=== PATIENT | male | born 1985 | race African-American/Black ===

== ENCOUNTER 2016-04-04 12:42 | Emergency (ER) | payer OTHER ==
--- NOTE | 2016-04-04 12:55 | ER Document Report ---
ED Medical Screen (RME) - General Stated Complaint: PENILE DISCHARGE Notes: penile discharge TRAVEL OUTSIDE OF THE [place] IN LAST 30 DAYS: No - Related Data Allergies/Adverse Reactions: No Known Allergies Allergy (Verified 02/10/16 10:58) Past Medical History Psychiatric Medical History: Reports: Hx Depression - Immunizations Immunizations up to date: Yes Hx Diphtheria, Pertussis, Tetanus Vaccination: Yes - 2015 Physical Exam - Vital signs Vitals: Temp Pulse Resp BP Pulse Ox 98.6 F 70 16 123/69 98 04/04/16 12:52 04/04/16 12:52 04/04/16 12:52 04/04/16 12:52 04/04/16 12:52 Course - Vital Signs Vital signs: Temp Pulse Resp BP Pulse Ox 98.6 F 70 16 123/69 98 04/04/16 12:52 04/04/16 12:52 04/04/16 12:52 04/04/16 12:52 04/04/16 12:52
--- NOTE | 2016-04-04 13:32 | ER Document Report ---
ED GI/ - General Chief Complaint: Penile Problem Stated Complaint: PENILE DISCHARGE Time seen by provider: 13:29 Information source: Patient - pt. with c/o dysuria for the past 2 days. Denies penile d/c, hematuria. TRAVEL OUTSIDE OF THE [place] IN LAST 30 DAYS: No - Related Data Allergies/Adverse Reactions: No Known Allergies Allergy (Verified 04/04/16 12:59) Past Medical History - General Information source: Patient - Social History Smoking Status: Current Every Day Smoker Cigarette use (# per day): Yes Chew tobacco use (# tins/day): No Smoking Education Provided: Yes Frequency of alcohol use: Social Drug Abuse: None Family History: None, Other - He was a foster child does not know family medical history Patient has suicidal ideation: No Patient has homicidal ideation: No Renal/ Medical History: Denies: Hx Peritoneal Dialysis Psychiatric Medical History: Reports: Hx Depression - Immunizations Immunizations up to date: Yes Hx Diphtheria, Pertussis, Tetanus Vaccination: Yes - 2015 Review of Systems - Review of Systems Constitutional: No symptoms reported Cardiovascular: No symptoms reported Respiratory: No symptoms reported Genitourinary: See HPI, Burning, Dysuria. denies: Discharge Male Genitourinary: No symptoms reported Physical Exam - Vital signs Vitals: Temp Pulse Resp BP Pulse Ox 98.6 F 70 16 123/69 98 04/04/16 12:52 04/04/16 12:52 04/04/16 12:52 04/04/16 12:52 04/04/16 12:52 - General General appearance: Appears well In distress: None - Respiratory Respiratory status: No respiratory distress Breath sounds: Normal - Cardiovascular Rhythm: Regular Heart sounds: Normal auscultation - Genitourinary Scrotum: Other - exam deferred per pt. request. Course - Vital Signs Vital signs: Temp Pulse Resp BP Pulse Ox 98.6 F 70 16 123/69 98 04/04/16 12:52 04/04/16 12:52 04/04/16 12:52 04/04/16 12:52 04/04/16 12:52 - Laboratory Laboratory results interpreted by me: 04/04/16 14:05 Urine Urobilinogen 4.0 H Discharge - Discharge Clinical Impression: Urethritis Condition: Stable Disposition: HOME, SELF-CARE Additional Instructions: rest, take meds as prescribed, return if worse Prescriptions: Azithromycin [Zithromax] 500 mg PO DAILY #1 tablet Referrals: YUNIER FLORES MD [ACTIVE STAFF] - Follow up as needed
[2016-04-04 14:42] LABS: APPEARANCE,URINE CLEAR; BILIRUBIN,URINE NEGATIVE (NEGATIVE); GLUCOSE, URINE NEGATIVE (NEGATIVE); KETONES,URINE NEGATIVE (NEGATIVE); LEUKOCYTE ESTERASE,URINE NEGATIVE (NEGATIVE); NITRITE,URINE NEGATIVE (NEGATIVE); PROTEIN,URINE NEGATIVE (NEGATIVE); URINE SPECIFIC GRAVITY 1.017
[2016-04-04] MEDS ORDERED: CEFTRIAXONE INJ 500 MG VIAL IM ONE (14:57)
[2016-04-04] MEDS ORDERED: LIDOCAINE 1% INJ-PF (10 MG/ML) 30 ML SDV INFIL ONE (14:57)
[2016-04-04 15:42] VITALS: BP 106/60
[2016-04-04 16:11] LABS: CHLAM PCR NOT DETECTED (NOT DETECT)
== END 2016-04-04 15:41 | disposition home or self-care (01) ==
LOC: ER 12:42
DX: N34.2 Other urethritis (principal); R30.0 Dysuria; F17.210 Nicotine dependence, cigarettes, uncomplicated
CPT/HCPCS: 99283; 96372; 81001; 87491; 87591; J3490; J0696

== ENCOUNTER 2016-08-04 12:05 | Day surgery (SDC) | payer SELFPAY ==
[2016-07-31 12:33] LABS: ANION GAP 13 (5-19); BLOOD UREA NITROGEN 17 mg/dL (7-20); CARBON DIOXIDE 30 mmol/L (22-30); CHLORIDE 103 mmol/L (98-107); CREATININE RESULT 0.97 mg/dL (0.52-1.25); GLUCOSE 101 mg/dL (75-110); POTASSIUM 4.5 mmol/L (3.6-5.0); SODIUM 145.7 mmol/L (137-145)
[2016-07-31 12:34] LABS: HEMATOCRIT 47.6 % (37.9-51.0); HEMOGLOBIN 16.3 g/dL (13.5-17.0); HGB HCT DIFFERENCE 1.3; MEAN CORPUSCULAR HEMOGLOBIN 28.5 pg (27.0-33.4); MEAN CORPUSCULAR HGB CONC 34.2 g/dL (32.0-36.0); MEAN CORPUSCULAR VOLUME 83 fl (80-97); RED BLOOD COUNT 5.71 10^6/uL (4.35-5.55); RED CELL DISTRIBUTION WIDTH 13.1 % (11.5-14.0); WHITE BLOOD COUNT 4.1 10^3/uL (4.0-10.5)
--- NOTE | 2016-07-31 13:46 | EKG REPORT ---
SEVERITY:- ABNORMAL ECG - SINUS RHYTHM ST ELEVATION SUGGESTS PERICARDITIS VS EARLY REPOL CHANGES TALL T WAVES, PROBABLY NORMAL VARIANT : Confirmed by: Yoli Portillo 31-Jul-2016 13:44:59
[~2016-08-04 12:05] MED LIST: ACETAMINOPHEN 325 MG TABLET PO PRN; CEFAZOLIN 1 GM/D5W RTU 1 GM/50 ML RTUPB IV PRN; LACTATED RINGERS 1000 ML IV PRN; LIDOCAINE 0.5% INJ-PF (5 MG/ML) 50 ML SDV SUBCUT PRN
[2016-08-04] MEDS ORDERED: FENTANYL CITRATE INJ/PF 250 MCG/5 ML AMPULE ONE ×2 (13:04→18:25)
[2016-08-04] MEDS ORDERED: PROPOFOL INJ 200 MG/20 ML VIAL IV ONE ×2 (13:04→18:26)
[2016-08-04] MEDS ORDERED: MIDAZOLAM 2 MG/2 ML INJ ONE ×3 (13:04→18:26)
[2016-08-04] MEDS ORDERED: ACETAMINOPHEN 100 ML IV ONE ×2 (13:05→18:26)
[2016-08-04] MEDS ORDERED: MORPHINE SULFATE 10 MG/ML INJ ONE ×2 (13:05→19:28)
[2016-08-04] MEDS ORDERED: RINGERS SOLUTION,LACTATED 1,000 ML IV ONE (13:30)
[2016-08-04] MEDS ORDERED: ONDANSETRON HCL INJ/PF 4 MG/2 ML SDV ONE (19:10)
[2016-08-04] MEDS ORDERED: ROCURONIUM BROMIDE INJ 50 MG/5 ML VIAL IV ONE (19:10)
[2016-08-04] MEDS ORDERED: BUPIVACAINE HCL 0.25 % INJ/PF (2.5 MG/1 ML) 30 ML VIAL ONE (19:47)
[2016-08-04] MEDS ORDERED: ONDANSETRON HCL INJ/PF 4 MG/2 ML SDV IV PRN ×2 (19:59→21:17)
[2016-08-04] MEDS ORDERED: MEPERIDINE HCL/PF INJ 25 MG/1 ML DISP.SYRIN IV PRN (19:59)
[2016-08-04] MEDS ORDERED: MORPHINE SULFATE 10 MG/ML INJ IV PRN (19:59)
[2016-08-04] MEDS ORDERED: FENTANYL CITRATE INJ/PF 100 MCG/2 ML AMPUL IV PRN ×3 (19:59)
[2016-08-04] MEDS ORDERED: DIPHENHYDRAMINE HCL 50 MG/ML VIAL IV PRN (19:59)
[2016-08-04] MEDS ORDERED: PROMETHAZINE HCL INJ 25 MG/1 ML VIAL IV PRN ×2 (19:59)
[2016-08-04] MEDS ORDERED: BUPIVACAINE HCL 0.25 % INJ/PF (2.5 MG/1 ML) 30 ML VIAL INJ ONE (20:05)
[2016-08-04] MEDS ORDERED: RINGERS SOLUTION,LACTATED 1,000 ML IV PRN (21:17)
--- NOTE | 2016-08-04 21:17 | PDOC DISCHARGE SUMMARY ---
Discharge Summary (SDC) - Discharge Final Diagnosis: Right scrotal inguinal hernia Date of Surgery: 08/04/16 Discharge Date: 08/04/16 Condition: Good Treatment or Instructions: Right inguinal hernia repair with mesh. May discharge patient home when met discharge criteria. Follow-up with me in 2 weeks. Stay active but avoid strenuous activity. May shower in 2 days. Keep Steri-Strips on. Prescriptions: Oxycodone HCl/Acetaminophen [Percocet 5-325 mg Tablet] 1 tab PO ASDIR PRN #35 tablet PRN Reason: Discharge Diet: As Tolerated Discharge Activity: Activity As Tolerated - Stay active but avoid strenuous activity. Report the Following to Your Physician Immediately: Fever over 101 Degrees, Unusual Bleeding, Redness, Drainage-Foul Smelling
[2016-08-04] MEDS: OXYCODONE-ACETAMINOPHEN 5-325 MG TABLET PO PRN (23:07)
[2016-08-05 03:37] VITALS: BP 117/51
[2016-08-05] MEDS: OXYCODONE-ACETAMINOPHEN 5-325 MG TABLET PO PRN (03:48)
--- NOTE | 2016-08-24 15:59 | Operative Report ---
Operative Report DATE OF SURGERY: 08/04/16 PREOPERATIVE DIAGNOSIS: Right scrotal hernia POSTOPERATIVE DIAGNOSIS: Right scrotal hernia OPERATION: Right inguinal hernia repair with mesh SURGEON: MARY KAY ZUNIGA ANESTHESIA: GA TISSUE REMOVED OR ALTERED: Hernia sac COMPLICATIONS: None ESTIMATED BLOOD LOSS: minimal INTRAOPERATIVE FINDINGS: Right indirect inguinal hernia with sac extending to the scrotum PROCEDURE: Informed consent was obtained. Patient was brought to the operating room and placed on the operating table in the supine position. After satisfactory induction of general anesthesia, patient's incarcerated the right scrotal hernia was the manually reduced. Patient's right groin was prepped and draped in usual sterile fashion. Transverse right groin incision was made and dissection was carried down and the external oblique was opened along its fascial fibers. The cord was mobilized at the pubic tubercle. Dissection at the anterior aspect of the cord revealed a thickened indirect inguinal hernia sac which extended down to the scrotum. The sac was dissected free from the surrounding structures taking great care to avoid injury to the cord structures. It was dissected to the level of the internal ring. It was opened to ensure that there were no incarcerated contents. High ligation of the sac was performed with a pursestring suture and the sac was excised. The iliohypogastric nerve would've been in the way of the repair therefore he was taken by clamping dividing and tying. Mesh repair was then performed with [employer] senior support analyst mesh. The sling ends were brought back together in a sling- like configuration thus re-creating the internal inguinal ring and allowing the egress of the cord structures. Fixation suture was placed at the pubic tubercle. The mesh laid flat with excellent coverage. Hemostasis appeared excellent. The external oblique was closed over the repair and the cord structures using running Vicryl suture. Demetrius's fascia was closed with interrupted Vicryl sutures. Skin was closed with subcuticular running Monocryl suture. Marcaine was injected at the operative site. Patient tolerated procedure well with no apparent complications and was taken to the recovery area in stable condition.
== END 2016-08-05 17:00 | disposition home or self-care (01) ==
LOC: OROUT 12:05 → 5 22:30 → OROUT 08-05 17:00
PROVIDERS: ATTEND Surgery
PROC: 0YU50JZ Supplement Right Inguinal Region with Synthetic Substitute, Open Approach (ICD-10-PCS; principal; 2016-08-04 19:30)
DX: K40.90 Unilateral inguinal hernia, without obstruction or gangrene, not specified as recurrent (principal); I51.7 Cardiomegaly; F17.210 Nicotine dependence, cigarettes, uncomplicated; D57.3 Sickle-cell trait
CPT/HCPCS: 93005; 36415; 85027; 80048; 88302 ×2; 93010; 49505; C1781; J2250; J0690; J3490; J3010; J2270; J2405; J2704; J0131; 830

== ENCOUNTER 2017-12-18 11:41 | Emergency (ER) | payer SELFPAY ==
[2017-12-18] MEDS ORDERED: KETOROLAC TROMETHAMINE 60 MG/2 ML SDV IM ONE (11:53)
[2017-12-18] MEDS ORDERED: BACLOFEN 20 MG TABLET PO ONE (11:53)
--- NOTE | 2017-12-18 12:06 | ER Document Report ---
ED Extremity Problem, Upper - General Chief Complaint: Shoulder Injury Stated Complaint: SHOULDER PAIN Time Seen by Provider: 12/18/17 11:49 Notes: Chief complaint: Right shoulder pain History of complain:( obtained from----patient) 32 years old male presents today with right shoulder pain since last night, while he was playing with his child accidentally sprained it. Since then having difficulty in doing any movements. No prior injuries. No other injuries noted. Onset: Sudden Duration: Since last night Severity: Moderate to severe Quality: Sharp Context: As described above Exacerbating factor and relieving factors: Any movement of the shoulder REVIEW OF SYSTEMS: CONSTITUTIONAL : Denies fever, chills, or sweats. Denies recent illness. EENT: Denies eye, ear, throat, or mouth pain or symptoms. Denies nasal or sinus congestion or discharge. Denies throat, tongue, or mouth swelling or difficulty swallowing. CARDIOVASCULAR: Denies chest pain. Denies palpitations or racing or irregular heart beat. Denies ankle edema. RESPIRATORY: Denies cough, cold, or chest congestion. Denies shortness of breath, difficulty breathing, or wheezing. GASTROINTESTINAL: Denies distention. Denies nausea, vomiting, or diarrhea. Denies blood in vomitus, stools, or per rectum. Denies black, tarry stools. Denies constipation. GENITOURINARY: Denies difficulty urinating, painful urination, burning, frequency, blood in urine, or discharge. FEMALE GENITOURINARY: Denies vaginal bleeding, heavy or abnormal periods, irregular periods. Denies vaginal discharge or odor. MUSCULOSKELETAL: Denies back or neck pain or stiffness. Denies joint pain or swelling. SKIN: Denies rash, lesions or sores. HEMATOLOGIC : Denies easy bruising or bleeding. LYMPHATIC: Denies swollen, enlarged glands. NEUROLOGICAL: Denies confusion or altered mental status. Denies passing out or loss of consciousness. Denies dizziness or lightheadedness. Denies headache. Denies weakness or paralysis or loss of use of either side. Denies problems with gait or speech. Denies sensory loss, numbness, or tingling. Denies seizures. PSYCHIATRIC: Denies anxiety or stress. Denies depression, suicidal ideation, or homicidal ideation. ALL OTHER SYSTEMS REVIEWED AND NEGATIVE. PHYSICAL EXAMINATION: GENERAL: Well-appearing, well-nourished and in no acute distress. HEAD: Atraumatic, normocephalic. EYES: Pupils equal round and reactive to light, extraocular movements intact, conjunctiva are normal. ENT: Nares patent, oropharynx clear without exudates. Moist mucous membranes. NECK: Normal range of motion, supple without lymphadenopathy LUNGS: Breath sounds clear to auscultation bilaterally and equal. No wheezes rales or rhonchi. HEART: Regular rate and rhythm without murmurs ABDOMEN: Soft, nontender, nondistended abdomen. No guarding, no rebound. No masses appreciated. Examination of genitals-deferred Musculoskeletal: Right shoulder-no obvious swelling noted but sharp tenderness over the infraspinatus /subscapular muscles-are tender at the insertion. He could not perform any abduction abduction flexion or rotation. Neurovascular function distally within normal limit NEUROLOGICAL: Cranial nerves grossly intact. Normal speech, normal gait. Normal sensory, motor exams PSYCH: Normal mood, normal affect. SKIN: Warm, Dry, normal turgor, no rashes or lesions noted. Dictation was performed using [employer] voice recognition software TRAVEL OUTSIDE OF THE [place] IN LAST 30 DAYS: No - HPI Notes: Dictated - Related Data Allergies/Adverse Reactions: No Known Allergies Allergy (Verified 12/18/17 11:42) Past Medical History - Social History Smoking Status: Current Some Day Smoker Frequency of alcohol use: Occasional Drug Abuse: None Family History: None, Reviewed & Not Pertinent, Other - He was a foster child does not know family medical history Patient has suicidal ideation: No Patient has homicidal ideation: No - Past Medical History Cardiac Medical History: Denies: Hx Coronary Artery Disease, Hx Heart Attack, Hx Hypertension Pulmonary Medical History: Denies: Hx Asthma, Hx Bronchitis, Hx COPD, Hx Pneumonia Neurological Medical History: Denies: Hx Cerebrovascular Accident, Hx Seizures Renal/ Medical History: Denies: Hx Peritoneal Dialysis Musculoskeletal Medical History: Denies Hx Arthritis Psychiatric Medical History: Reports: Hx Depression - Immunizations Immunizations up to date: Yes Hx Diphtheria, Pertussis, Tetanus Vaccination: Yes - 2016 Review of Systems - Review of Systems Notes: Dictated Physical Exam - Vital signs Vitals: Temp Pulse Resp BP Pulse Ox 98.2 F 71 14 132/70 H 97 12/18/17 11:45 12/18/17 11:45 12/18/17 11:45 12/18/17 11:45 12/18/17 11:45 - Notes Notes: Dictated Course - Vital Signs Vital signs: Temp Pulse Resp BP Pulse Ox 98.2 F 71 14 132/70 H 97 12/18/17 11:45 12/18/17 11:45 12/18/17 11:45 12/18/17 11:45 12/18/17 11:45 - Diagnostic Test Radiology reviewed: Reports reviewed - X-ray of the shoulder reported by radiologist as unremarkable no fractures. Discharge - Discharge Clinical Impression: Sprain of right shoulder girdle Qualifiers: Encounter type: initial encounter Qualified Code(s): S43.91XA - Sprain of unspecified parts of right shoulder girdle, initial encounter Condition: Fair Disposition: HOME, SELF-CARE Instructions: Shoulder Injury ([facility]) Additional Instructions: Follow-up with orthopedic surgeon soon as possible Prescriptions: Hydrocodone/Acetaminophen [Hydrocodon-Acetaminophen 5-325] 1 each PO TID #14 tablet Ibuprofen 800 mg PO TID #30 tablet Prednisone 10 mg PO ASDIR PRN 6 Days #1 tab.ds.pk PRN Reason:
--- NOTE | 2017-12-18 12:29 | RADIOLOGY REPORT (SQ) ---
EXAM DESCRIPTION: SHOULDER RIGHT 2 OR MORE VIEWS COMPLETED DATE/TIME: 12/18/2017 12:17 pm REASON FOR STUDY: Shoulder injury COMPARISON: None. NUMBER OF VIEWS: Three views right shoulder. LIMITATIONS: None. FINDINGS: There is no acute or significant bone, joint or soft tissue abnormality. OTHER: No other significant finding. IMPRESSION: NORMAL STUDY. TECHNICAL DOCUMENTATION: JOB ID: [id number] Reading location - IP/workstation name: [email or web address]
[2017-12-18 13:06] VITALS: BP 123/69
== END 2017-12-18 13:08 | disposition home or self-care (01) ==
LOC: ER 11:41
DX: S43.91XA Sprain of unspecified parts of right shoulder girdle, initial encounter (principal); W01.0XXA Fall on same level from slipping, tripping and stumbling without subsequent striking against object, initial encounter; Y93.89 Activity, other specified; F17.200 Nicotine dependence, unspecified, uncomplicated
CPT/HCPCS: 99283; 96372; 73030; J1885; J3490

== ENCOUNTER 2018-02-07 15:52 | Emergency (ER) | payer SELFPAY ==
[2018-02-07] MEDS ORDERED: CEPHALEXIN 500 MG CAPSULE PO ONE (18:12)
[2018-02-07] MEDS ORDERED: SULFAMETHOXAZOLE/TRIMETHOPRIM 800-160 MG TABLET PO ONE (18:12)
[2018-02-07] MEDS ORDERED: HYDROCODONE/ACETAMINOPHEN 5-325 MG TABLET PO ONE (18:13)
[2018-02-07 18:28] VITALS: BP 128/75
--- NOTE | 2018-02-07 18:30 | ER Document Report ---
ED General - General Chief Complaint: Abscess Stated Complaint: FACIAL PAIN, SWELLING Time Seen by Provider: 02/07/18 17:26 Mode of Arrival: Ambulatory Information source: Patient, Relative Notes: Patient is a 32-year-old male comes emergency room complaining of swelling to the right side of his face. Patient states that he is grown a albright and has a fairly full one. States that yesterday he noticed a pimple and he attempted to pop it a little pus came out but mostly bloody. Overnight it got to be much bigger and more painful. And he attempted to pop it again and states that only got blood. Does state that it was very painful. He now complains of swelling to the right lower jaw area. Denies any fevers. No history of this in the past. TRAVEL OUTSIDE OF THE [place] IN LAST 30 DAYS: No - HPI Onset: Yesterday Onset/Duration: Sudden, Constant, Worse Quality of pain: Pressure, Sharp, Throbbing Severity: Moderate Pain Level: 3 Exacerbated by: Denies Relieved by: Denies Similar symptoms previously: No Recently seen / treated by doctor: No - Related Data Allergies/Adverse Reactions: No Known Allergies Allergy (Verified 12/18/17 11:42) Past Medical History - Social History Smoking Status: Current Every Day Smoker Cigarette use (# per day): Yes - Half-pack a day Chew tobacco use (# tins/day): No Smoking Education Provided: Yes Frequency of alcohol use: None Drug Abuse: None Family History: None, Reviewed & Not Pertinent, Other - He was a foster child does not know family medical history Patient has suicidal ideation: No Patient has homicidal ideation: No - Past Medical History Cardiac Medical History: Denies: Hx Coronary Artery Disease, Hx Heart Attack, Hx Hypertension Pulmonary Medical History: Denies: Hx Asthma, Hx Bronchitis, Hx COPD, Hx Pneumonia Neurological Medical History: Denies: Hx Cerebrovascular Accident, Hx Seizures Renal/ Medical History: Denies: Hx Peritoneal Dialysis Musculoskeletal Medical History: Denies Hx Arthritis Psychiatric Medical History: Reports: Hx Depression - Immunizations Immunizations up to date: Yes Hx Diphtheria, Pertussis, Tetanus Vaccination: Yes - 2016 Review of Systems - Review of Systems Constitutional: No symptoms reported EENT: No symptoms reported Cardiovascular: No symptoms reported Respiratory: No symptoms reported Gastrointestinal: No symptoms reported Genitourinary: No symptoms reported Male Genitourinary: No symptoms reported Musculoskeletal: No symptoms reported Skin: See HPI, Lesions, Lumps, Other - Abscess Hematologic/Lymphatic: No symptoms reported Neurological/Psychological: No symptoms reported -: Yes All other systems reviewed and negative Physical Exam - Vital signs Vitals: Temp Pulse Resp BP Pulse Ox 98.5 F 58 L 12 120/77 97 02/07/18 16:01 02/07/18 16:01 02/07/18 16:01 02/07/18 16:01 02/07/18 16:01 Interpretation: Bradycardic - Notes Notes: PHYSICAL EXAMINATION: GENERAL: Well-appearing, well-nourished and in no acute distress uncomfortable appearing. HEAD: , normocephalic. Visual inspection of patient's right side of his face and lower jaw area shows there to be an induration that is approximately size of a half dollar that is somewhat fluctuant to palpation very tender to touch. There is a central opening where the apparent head of the pimple was originally. Moderate warmth to palpation as well. There is no fluctuance from the inside of the mouth the can be palpated. EYES: Pupils equal round and reactive to light, extraocular movements intact, sclera anicteric, conjunctiva are normal. ENT: Nares patent, oropharynx clear without exudates. Moist mucous membranes. NECK: Normal range of motion, supple without lymphadenopathy LUNGS: Breath sounds clear to auscultation bilaterally and equal. No wheezes rales or rhonchi. HEART: Bradycardia rate and rhythm without murmur Musculoskeletal: Normal range of motion, no pitting or edema. No cyanosis. NEUROLOGICAL: Normal speech, normal gait. Normal sensory, motor exams PSYCH: Normal mood, normal affect. SKIN: Warm, Dry, normal turgor, no rashes or lesions noted. Course - Re-evaluation Re-evalutation: 02/07/18 18:30 Patient already had an opening where he popped original pimple. I was applying some light pressure to both sides of the area that was tender. As I applied pressure pus started coming out of that hole. The more pressure applied the more pus came out. After the initial amount of pus was told patient that basically needed to push 1 or 2 more times to really finish getting it all out and that it would probably be somewhat uncomfortable but the other option was for me to go get the lidocaine and injected in the hold and wait for a while and then used a knife to open up a little more and then apply the pressure. I convince patient to let me go ahead and continue to express what ever I could through applying pressure to the sides. I was able to get out approximately 6 mL's of thick white pus. There was some blood-tinged mixture towards the end. Patient tolerated me applying pressure to express as much as I could out of it. - Vital Signs Vital signs: Temp Pulse Resp BP Pulse Ox 98.5 F 58 L 12 120/77 97 02/07/18 16:01 02/07/18 16:01 02/07/18 16:01 02/07/18 16:01 02/07/18 16:01 Discharge - Discharge Clinical Impression: Folliculitis, Facial abscess Condition: Stable Disposition: HOME, SELF-CARE Instructions: Abscess ([facility]), Cephalexin ([facility]), Folliculitis ([facility]), Oral Narcotic Medication ([facility]), Trimethoprim-Sulfa ([facility]) Additional Instructions: As we discussed this was already open abscess was and it was apply pressure to get it out. Most of it is now back to normal size. I am putting you on 2 antibiotics to get a good coverage he can go to [facility] and get these on the $4 list. Take them as directed. I am giving you a little pain medication as well secondary to the swelling and discomfort. Take it according to how it is prescribed. Use warm moist compresses 3-4 times a day this is a washrag as warm as you can stand it from the sink. Do not put it in a microwave. Return to ER for increase in size increasing pain or any concerns. Prescriptions: Cephalexin Monohydrate [Keflex 500 mg Capsule] 500 mg PO Q6H 10 Days #40 capsule Hydrocodone/Acetaminophen [[place] 5-325 mg Tablet] 1 tab PO Q4 #8 tablet Sulfamethoxazole/Trimethoprim [Bactrim Ds Tablet] 1 each PO BID #20 tablet Forms: Smoking Cessation Education, Return to Work Referrals: ROSANGELA DAMON MD [Primary Care Provider] - Follow up as needed
== END 2018-02-07 18:49 | disposition home or self-care (01) ==
LOC: ER 15:52
DX: L73.9 Follicular disorder, unspecified (principal); L02.01 Cutaneous abscess of face; R51 Headache; R68.84 Jaw pain; F17.210 Nicotine dependence, cigarettes, uncomplicated
CPT/HCPCS: 99282

== ENCOUNTER 2020-01-01 23:47 | Emergency (ER) | payer SELFPAY ==
--- NOTE | 2020-01-02 00:16 | ER Document Report ---
ED General - General Chief Complaint: Groin Pain Stated Complaint: GROIN PAIN Time Seen by Provider: 01/02/20 00:12 Primary Care Provider: ROSANGELA DAMON MD [Primary Care Provider] - Follow up as needed Mode of Arrival: Ambulatory Information source: Patient Notes: 34-year-old -[place] male coming in today with right groin pain. Has a knot in his right groin near where he had inguinal hernia surgery. TRAVEL OUTSIDE OF THE [place] IN LAST 30 DAYS: No - Related Data Allergies/Adverse Reactions: No Known Allergies Allergy (Verified 12/18/17 11:42) Past Medical History - Social History Smoking Status: Unknown if Ever Smoked Family History: None, Reviewed & Not Pertinent, Other - He was a foster child does not know family medical history - Past Medical History Cardiac Medical History: Denies: Hx Coronary Artery Disease, Hx Heart Attack, Hx Hypertension Pulmonary Medical History: Denies: Hx Asthma, Hx Bronchitis, Hx COPD, Hx Pneumonia Neurological Medical History: Denies: Hx Cerebrovascular Accident, Hx Seizures Renal/ Medical History: Denies: Hx Peritoneal Dialysis Musculoskeletal Medical History: Denies Hx Arthritis Psychiatric Medical History: Reports: Hx Depression - Immunizations Immunizations up to date: Yes Hx Diphtheria, Pertussis, Tetanus Vaccination: Yes - 2015 Review of Systems - Review of Systems Notes: Constitutional: No fevers. No chills. EENT: No eye redness. No eye pain. No ear pain. No sore throat. Cardiovascular: No chest pain. No palpitations. Respiratory: No cough. No shortness of breath. No respiratory distress. Gastrointestinal: No abdominal pain. No nausea, vomiting, or diarrhea. Genitourinary: Atraumatic. No lesions. No pain. No discharge. Positive right groin pain Musculoskeletal: Atraumatic. No swelling. No deformities. Skin: No rash or lesions. Lymphatic: No swollen lymph nodes. Neurologic: No headache. No syncope. Psychiatric: No suicidal or homicidal ideation. Physical Exam - Vital signs Vitals: Temp Pulse Resp BP Pulse Ox 98.8 F 79 16 130/80 H 97 01/01/20 23:55 01/01/20 23:55 01/01/20 23:55 01/01/20 23:55 01/01/20 23:55 - Notes Notes: General: Well-developed, well-nourished. In no acute distress. Non-toxic appearing. Cardiac: Well-perfused. Regular rate and rhythm. No murmurs, rubs, or gallops. Pulmonary: No respiratory distress. No cyanosis. Bilateral lung fiels are clear to auscultation. Abdominal: Non-distended. Non-rigid. Bowels sounds are present in all four quadrants. No guarding or rebound. HEENT: Head is atraumatic. Conjunctivae not reddened. No tearing. PERRL. EOMI. Orbits atraumatic. No periorbital swelling or erythema. Oropharynx is without erythema, swelling, or exudates. Neck: Supple. No adenopathy. No meningismus. Dermatologic: Warm with good turgor. No rash. Atraumatic. Chest: Atraumatic. No chest wall tenderness to palpation. Musculoskeletal: Moves all extremities well. No range of motion deficits. no muscular or joint tenderness. No paraspinal muscle tenderness. no midline spinal tenderness or step-off. Genitourinary: External genitalia is normal. There is a small indurated area in the right groin. No erythema. No heat Neurologic: No gross neurologic deficits. Psychiatric: Normal mood. Course - Re-evaluation Re-evalutation: 01/02/20 00:13 Suspect possible early folliculitis/small abscess that is to indurated to incise and drain. We will put him on some Bactrim DS for 10 days to see if this will improve. - Vital Signs Vital signs: Temp Pulse Resp BP Pulse Ox 98.8 F 79 16 130/80 H 97 01/01/20 23:55 01/01/20 23:55 01/01/20 23:55 01/01/20 23:55 01/01/20 23:55 Discharge - Discharge Clinical Impression: Folliculitis, Elevated blood pressure reading Condition: Good Disposition: HOME, SELF-CARE Instructions: Folliculitis ([facility]) Prescriptions: Sulfamethoxazole/Trimethoprim [Bactrim Ds Tablet] 1 each PO BID 10 Days #20 tabl et Naproxen 500 mg PO BID 5 Days #10 tablet Forms: Elevated Blood Pressure Referrals: ROSANGELA DAMON MD [Primary Care Provider] - Follow up as needed
[2020-01-02 00:46] VITALS: BP 132/80
== END 2020-01-02 00:44 | disposition home or self-care (01) ==
LOC: ER 23:47
DX: L73.9 Follicular disorder, unspecified (principal); R03.0 Elevated blood-pressure reading, without diagnosis of hypertension
CPT/HCPCS: 99283